=== PATIENT | male | born 1990 | race Caucasian/White ===

== ENCOUNTER 2022-02-14 20:44 | Emergency (ER) | payer SELFPAY ==
[~2022-02-14] VITALS: Ht 170.2 cm; Wt 64.0 kg
[2022-02-14 22:22] VITALS: BP 105/59
== END 2022-02-14 23:08 | disposition home or self-care (01) ==
LOC: ER 20:44
DX: R55 Syncope and collapse (principal); W08.XXXA Fall from other furniture, initial encounter; Y93.89 Activity, other specified; Y92.89 Other specified places as the place of occurrence of the external cause; Y99.8 Other external cause status
CPT/HCPCS: 82962; 93005; 99283